=== PATIENT | female | born 1985 | race Caucasian/White ===

== ENCOUNTER → 2020-07-07 | Outpatient (CLI) | payer OTHER ==
[~2020-07-07] MED LIST: ADIPEX-P37.5 MG PO; AMOXICILLIN500 MG PO; ASPIR 8181 MG PO; NITROSTAT0.4 MG SL; VITAMIN D250000 UNIT PO
== END ==
LOC: KOH-I 09:33
DX: S82.892A Other fracture of left lower leg, initial encounter for closed fracture (principal)
CPT/HCPCS: 73610

== ENCOUNTER → 2020-08-07 | Outpatient (CLI) | payer OTHER | LOC: KOH-I 11:15 | DX: S86.392A Other injury of muscle(s) and tendon(s) of peroneal muscle group at lower leg level, left leg, initial encounter (principal) | CPT/HCPCS: 73721 ==